=== PATIENT | male | born 1950 | race Caucasian/White ===

== ENCOUNTER 2017-02-05 08:15 | Inpatient (IN) | payer BC ==
[~2017-02-05 08:15] MED LIST: ACCUNEB INH; AMIT50 PO; ASABAYER PO; COMBIVENT INH; COREG25 PO; FISH-EPA1000 MG PO; FLOVENT110 INH; NITROII20C TOP; NITROSTAT0.4 MG SL; RAN500 PO; ZESTRIL10 MG PO; ZOCOR40 PO
[2017-02-05 09:01] LABS: BASOPHILS 0.2 %; BASOPHILS ABSOLUTE 0.02 10/3/uL (0.0-0.16); EOSINOPHILS 2.8 %; EOSINOPHILS ABSOLUTE 0.26 10/3/uL (0.0-0.53); HEMATOCRIT 44.2 % (40.0-51.0); IMMATURE GRANULOCYTES 1.1 %; LYMPHOCYTES 30.4 %; LYMPHOCYTES ABSOLUTE 2.85 10/3/uL (0.67-4.30); MEAN CORPUS HGB CONC 33.9 g/dL (32.0-36.0); MEAN CORPUSCULAR HEMOGLOB 31.3 pg (26.0-34.0); MEAN CORPUSCULAR VOLUME 92.3 fL (80-100); MEAN PLATELET VOLUME 10.5 fL (9.2-13.0); MONOCYTES 8.6 %; MONOCYTES ABSOLUTE 0.81 10/3/uL (0.21-1.20); NEUTROPHILS 56.9 %; NEUTROPHILS ABSOLUTE 5.35 10/3/uL (2.02-8.40); RBC DISTRIBUTION WIDTH 16.7 % (12.0-16.0); RED CELL COUNT 4.79 10/6/uL (4.7-6.1); WHITE BLOOD CELLS 9.4 10/3/uL (4.5-10.5)
[2017-02-05 09:05] LABS: MANUAL DIFF NO %; PLATELET COUNT 357 10/3/uL (150-400)
[2017-02-05 09:16] LABS: BUN (BLOOD UREA NITROGEN) 15 MG/DL (6-23); CALCIUM, SERUM 9.4 MG/DL (8.5-10.4); CHLORIDE, SERUM 104 MMOL/L (96-112); CHOL/HDL RATIO(NOT ORDER) 6.5 (0-5); CHOLESTEROL 261 MG/DL (< 200); CO2 (CARBON DIOXIDE) 29 MMOL/L (24-34); CREATININE 1.45 MG/DL (0.70-1.30); GFR AFRICAN AMERICAN 59 ML/MIN (>=60); GFR NON AFRICAN AMERICAN 51 ML/MIN (>=60); GLUCOSE, SERUM 122 MG/DL (60-99); HDL CHOLESTEROL 40 MG/DL (> 39); LDL CHOLESTEROL 188 MG/DL (< 130); NON-HDL CHOLESTEROL 221 MG/DL (< 160); POTASSIUM, SERUM 4.3 MMOL/L (3.5-5.3); SODIUM, SERUM 142 MMOL/L (135-148); TRIGLYCERIDE 166 MG/DL (< 150)
[2017-02-05 13:02] LABS: CPK 148 U/L (0-200)
[2017-02-05 13:04] LABS: CK-MB 1.8 NG/ML
[2017-02-05] MEDS ORDERED: LIPITOR40 PO (17:15)
[2017-02-05] MEDS ORDERED: ASAB PO (17:15)
[2017-02-06 04:26] LABS: BUN (BLOOD UREA NITROGEN) 15 MG/DL (6-23); CALCIUM, SERUM 8.7 MG/DL (8.5-10.4); CHLORIDE, SERUM 105 MMOL/L (96-112); CK-MB 30.8 NG/ML; CPK 366 U/L (0-200); CREATININE 0.97 MG/DL (0.70-1.30); GFR AFRICAN AMERICAN 95 ML/MIN (>=60); GFR NON AFRICAN AMERICAN 82 ML/MIN (>=60); GLUCOSE, SERUM 103 MG/DL (60-99); SODIUM, SERUM 139 MMOL/L (135-148)
[2017-02-06 04:27] LABS: CKMB INDEX (NOT ORD) 8.4; CO2 (CARBON DIOXIDE) 24 MMOL/L (24-34)
[2017-02-06 04:46] LABS: HEMATOCRIT 41.2 % (40.0-51.0); HEMOGLOBIN 13.8 g/dL (13.6-17.8)
[2017-02-07 05:41] LABS: CK-MB 9.7 NG/ML
[2017-02-07 05:43] LABS: CKMB INDEX (NOT ORD) 4.9
[2017-02-07] MEDS ORDERED: PLAVIX PO (12:10)
== END 2017-02-07 14:38 | disposition home or self-care (01) | DRG 247 ==
LOC: CORLMH 08:15 → SSU1 08:23 → 6NO 02-06 10:18
PROVIDERS: Internal Medicine Cardiovascular Disease
PROC: 027035Z Dilation of Coronary Artery, One Artery with Two Drug-eluting Intraluminal Devices, Percutaneous Approach (ICD-10-PCS; principal; 2017-02-05)
PROC: 4A023N7 Measurement of Cardiac Sampling and Pressure, Left Heart, Percutaneous Approach (ICD-10-PCS; 2017-02-05)
PROC: B2111ZZ Fluoroscopy of Multiple Coronary Arteries using Low Osmolar Contrast (ICD-10-PCS; 2017-02-05)
PROC: B2131ZZ Fluoroscopy of Multiple Coronary Artery Bypass Grafts using Low Osmolar Contrast (ICD-10-PCS; 2017-02-05)
DX: I25.710 Atherosclerosis of autologous vein coronary artery bypass graft(s) with unstable angina pectoris (principal); I12.9 Hypertensive chronic kidney disease with stage 1 through stage 4 chronic kidney disease, or unspecified chronic kidney disease; N18.9 Chronic kidney disease, unspecified; F17.210 Nicotine dependence, cigarettes, uncomplicated; I25.2 Old myocardial infarction; J44.9 Chronic obstructive pulmonary disease, unspecified; E78.5 Hyperlipidemia, unspecified; Z88.5 Allergy status to narcotic agent; Z88.8 Allergy status to other drugs, medicaments and biological substances
CPT/HCPCS: 80048; 80061; 82550; 82553; 85014; 85018; 85025; 85347; 93005; 93459; 94640; 99152; 99153; A9270-GY; C1725; C1769; C1874; C1887; C1894; C9604; G0378; J2250; J3010; Q9967